=== PATIENT | male | born 1955 | race Caucasian/White ===

== ENCOUNTER 2017-03-09 09:43 | Day surgery (SDC) | payer OTHER ==
[~2017-03-09] VITALS: Ht 190.5 cm; Wt 90.8 kg
[2017-03-09] MEDS ORDERED: TENORMIN100 MG PO (10:02)
[2017-03-09] MEDS ORDERED: ASPIRIN 81M81 MG/TA2 PO (10:02)
[2017-03-09] MEDS ORDERED: LOTENSIN HCT 201 TAB PO (10:04)
[2017-03-09 10:05] VITALS: BP 110/80; PULSE 62; TEMP 97.7
[2017-03-09 11:10] VITALS: BP 101/70; PULSE 59; TEMP 97.7
[2017-03-09 11:30] VITALS: BP 96/67; PULSE 47
[2017-03-09 11:45] VITALS: BP 91/74; PULSE 49
[2017-03-09 12:00] VITALS: BP 101/59; PULSE 48
[2017-03-09 12:45] VITALS: BP 97/66; PULSE 53
== END 2017-03-09 12:45 | disposition home or self-care (01) ==
LOC: SDCO 09:43
DX: Z12.11 Encounter for screening for malignant neoplasm of colon (principal); K63.5 Polyp of colon; K57.30 Diverticulosis of large intestine without perforation or abscess without bleeding; Z86.010 Personal history of colon polyps; Z80.0 Family history of malignant neoplasm of digestive organs
CPT/HCPCS: J2250; J3010; J7030

== ENCOUNTER → 2021-01-10 | Outpatient (CLI) | payer MEDICARE, BC ==
[~2021-01-10] MED LIST: ASPIRIN 81M81 MG/TA2 PO; LOTENSIN HCT 201 TAB PO; TENORMIN100 MG PO
== END ==
LOC: COL.RAD 09:30
DX: Z13.6 Encounter for screening for cardiovascular disorders (principal)

== ENCOUNTER 2021-03-02 18:02 | Emergency (ER) | payer MEDICARE, BC ==
[~2021-03-02] VITALS: Ht 182.9 cm; Wt 93.2 kg
[2021-03-02 18:13] VITALS: TEMP 99
[2021-03-02 18:44] LABS: ALANINE AMINOTRANSFERASE 16 U/L (0-55); ALBUMIN 3.7 gm/dL (3.4-4.8); ALCOHOL(ethanol),MEDICAL 34 mg/dL (0-10); ALKALINE PHOSPHATASE 56 U/L (40-150); ANION GAP 16 mmol/L (7-16); AST,SGOT 32 U/L (5-34); BILIRUBIN,TOTAL 0.4 mg/dL (0.2-1.2); BLOOD UREA NITROGEN 16 mg/dL (8-26); CALCIUM 8.7 mg/dL (8.4-10.2); CARBON DIOXIDE 20 mmol/L (23-31); CHLORIDE 105 mmol/L (98-107); CREATININE, serum 0.84 mg/dL (0.72-1.25); GLUCOSE 112 mg/dL (70-99); POTASSIUM 3.7 mmol/L (3.5-4.5); SODIUM 141 mmol/L (136-145); TOTAL PROTEIN 6.9 gm/dL (6.2-8.1)
[2021-03-02 18:49] LABS: TROPONIN-I < 0.010 ng/mL (0.00-0.033)
[2021-03-02 18:55] LABS: BASO % 0.6 % (0.0-2.0); EOS # 0.1 K/mm3 (0.0-0.7); EOS % 0.9 % (0-4.0); GRAN # 4.3 K/mm3 (1.4-6.5); GRAN % 61.9 % (42.2-75.2); HEMATOCRIT 41.7 % (42.0-52.0); HEMOGLOBIN 14.5 g/dl (13.5-18.0); LYMPH # 1.6 K/mm3 (1.2-3.4); LYMPH % 23.6 % (20.0-51.0); MEAN CELL VOLUME 97 fl (80.0-100.0); MEAN CORPUSCULAR HEMOGLOBIN 34 pg (27.0-31.0); MEAN CORPUSCULAR HGB CONC 35 g/dl (33.0-37.0); MEAN PLATELET VOLUME 9.7 fl (7.4-10.4); MONO # 0.9 K/mm3 (0.1-0.6); MONO % 12.6 % (1.7-9.3); PLATELET COUNT 183 K/mm3 (130-400); RED BLOOD COUNT 4.32 M/mm3 (4.20-5.60); REDCELL DISTRIBUTION WIDTH-CV 13.5 % (11.5-14.5)
[2021-03-02 19:11] LABS: COLLECTION METHOD CATHETER
[2021-03-02 19:17] LABS: INR 0.9 (0.8-3.0); PARTIAL THROMBOPLASTIN TIME 18.2 SECONDS (26.0-37.0); PROTHROMBIN TIME 9.7 SECONDS (9.7-12.8)
[2021-03-02 19:34] LABS: MUCOUS Present (NOT PRESENT); PH 5 (5-8); SQUAMOUS EPITHELIAL None Seen /hpf (0-10); URINE APPEARANCE Clear (CLEAR/HAZY); URINE BACTERIA None Seen (NONE SEEN); URINE BILIRUBIN Negative (NEGATIVE); URINE BLOOD Negative (NEGATIVE); URINE COLOR Yellow (YELLOW); URINE GLUCOSE Negative (NEGATIVE); URINE KETONE Negative (NEGATIVE); URINE LEUKOCYTE ESTERASE Negative (NEGATIVE); URINE NITRATE Negative (NEGATIVE); URINE PROTEIN(semi-quant) Negative (NEGATIVE); URINE RBC 0-2 /hpf (0-2); URINE UROBILINOGEN Negative (NEGATIVE); URINE WBC 0-2 /hpf (0-2)
[2021-03-02 19:41] LABS: TRICYCLIC ANTIDEPRESS URINE NEGATIVE
[2021-03-02 20:18] VITALS: BP 158/99; PULSE 98
== END 2021-03-02 20:18 | disposition short-term general hospital (02) ==
LOC: COL.ER 18:02
PROVIDERS: Emergency Medicine
DX: I48.20 Chronic atrial fibrillation, unspecified (principal); I63.9 Cerebral infarction, unspecified; G83.9 Paralytic syndrome, unspecified; I10 Essential (primary) hypertension; Z20.822 Contact with and (suspected) exposure to COVID-19; Z79.899 Other long term (current) drug therapy
CPT/HCPCS: J3101; J7030; J7050; Q9967

== ENCOUNTER 2021-03-23 10:30 | Outpatient (RCR) | payer MEDICARE, BC | END 2021-03-25 | disposition home or self-care (01) | LOC: WSPT | DX: Z86.73 Personal history of transient ischemic attack (TIA), and cerebral infarction without residual deficits (principal) ==

== ENCOUNTER 2021-05-04 13:23 | Inpatient (IN) | payer MEDICARE, BC ==
[~2021-05-04] VITALS: Ht 190.5 cm; Wt 93.1 kg
[2021-05-18 09:04] LABS: BASO % 0.3 % (0.0-2.0); EOS # 0.1 K/mm3 (0.0-0.7); EOS % 1.3 % (0.0-4.0); GRAN # 4.6 K/mm3 (1.4-6.5); GRAN % 63.6 % (42.2-75.2); HEMATOCRIT 40.8 % (42.0-52.0); HEMOGLOBIN 13.9 g/dl (13.5-18.0); LYMPH # 1.6 K/mm3 (1.2-3.4); LYMPH % 22.3 % (20.0-51.0); MEAN CELL VOLUME 96 fl (80.0-100.0); MEAN CORPUSCULAR HEMOGLOBIN 33 pg (27-31); MEAN CORPUSCULAR HGB CONC 34 g/dl (33.0-37.0); MEAN PLATELET VOLUME 10.2 fl (7.4-10.4); MONO # 0.9 K/mm3 (0.1-0.6); MONO % 12.1 % (1.7-9.3); PLATELET COUNT 175 K/mm3 (130-400); RED BLOOD COUNT 4.27 M/mm3 (4.20-5.60); REDCELL DISTRIBUTION WIDTH-CV 12.6 % (11.5-14.5)
[2021-05-18 09:13] LABS: INR 1.3 (0.8-3.0); PROTHROMBIN TIME 14.4 SECONDS (9.7-12.8)
[2021-05-18] MEDS ORDERED: NICODERM C14 MG/PATC TD (09:24)
[2021-05-18] MEDS ORDERED: ELIQUIS 5MG PO (09:24)
[2021-05-18 09:29] LABS: ALBUMIN 3.7 gm/dL (3.4-4.8); BILIRUBIN,TOTAL 0.5 mg/dL (0.2-1.2); CALCIUM 8.9 mg/dL (8.4-10.2); CREATININE, serum 0.86 mg/dL (0.72-1.25); MAGNESIUM 1.7 mg/dL (1.6-2.6); POTASSIUM 4.2 mmol/L (3.5-4.5); TOTAL PROTEIN 6.8 gm/dL (6.2-8.1)
--- NOTE | 2021-05-18 10:00 | NUR ---
Admission assessment completed, alert/oriented, vital signs stable, EKG QTC WNL and Sotalol dose given, tele applied , SR on tele , IV startedto right forearm, present, home meds/allergies/pharmacy reviewed and updated, denies other needs, notified Cardiology of arrival
[2021-05-18] MEDS ORDERED: VITAMIN D31000 I1 PO (10:19)
[2021-05-18] MEDS ORDERED: KAPSPARGO SPRIN25 MG PO (10:20)
[2021-05-18] MEDS ORDERED: MULTI VITAMINS1 TAB PO (10:20)
[2021-05-18] MEDS ORDERED: LIPITOR 10MG10 MG PO (10:21)
[2021-05-18] MEDS ORDERED: ZESTRIL 5MG5 MG PO (10:21)
[2021-05-18 13:35] VITALS: BP 150/97; PULSE 75; TEMP 98.1
[2021-05-18 17:20] VITALS: BP 136/88; PULSE 81; TEMP 98.7
[2021-05-18 19:30] VITALS: BP 125/83; PULSE 67; TEMP 97.3
--- NOTE | 2021-05-18 21:31 | NUR ---
Patient assessed around 2034. Alert and oriented x 4, and able to make needs known. Denies pain and discomfort. Peripheral INT to right forearm. Denies SOB and dyspnea. LS CTA. HRR. Telemetry in place: normal sinus. BSAx4. Abdomen soft and non-tender. Voices no questions, needs, or concerns at this time. In bed with call light within reach.
[2021-05-18 23:42] VITALS: BP 121/79; PULSE 57; TEMP 97.9
[2021-05-19 04:18] VITALS: BP 115/76; PULSE 51; TEMP 98
--- NOTE | 2021-05-19 05:52 | NUR ---
Patient has been in bed with call light within reach. Has denied pain and discomfort this shift. Patient continues on tele, sinus calli, HR in the 50s. Voices no questions, needs, or concerns at this time. In bed with call light within reach.
[2021-05-19 07:18] LABS: BASO % 0.5 % (0.0-2.0); EOS # 0.1 K/mm3 (0.0-0.7); EOS % 2.3 % (0.0-4.0); GRAN # 3.7 K/mm3 (1.4-6.5); GRAN % 60.3 % (42.2-75.2); HEMATOCRIT 39.9 % (42.0-52.0); HEMOGLOBIN 13.8 g/dl (13.5-18.0); LYMPH # 1.5 K/mm3 (1.2-3.4); LYMPH % 23.7 % (20.0-51.0); MEAN CELL VOLUME 93 fl (80.0-100.0); MEAN CORPUSCULAR HEMOGLOBIN 32 pg (27-31); MEAN CORPUSCULAR HGB CONC 35 g/dl (33.0-37.0); MEAN PLATELET VOLUME 10.9 fl (7.4-10.4); MONO # 0.8 K/mm3 (0.1-0.6); MONO % 12.9 % (1.7-9.3); PLATELET COUNT 169 K/mm3 (130-400); RED BLOOD COUNT 4.27 M/mm3 (4.20-5.60); REDCELL DISTRIBUTION WIDTH-CV 12.5 % (11.5-14.5)
[2021-05-19 07:22] LABS: CALCIUM 8.8 mg/dL (8.4-10.2); CREATININE, serum 0.82 mg/dL (0.72-1.25); MAGNESIUM 1.7 mg/dL (1.6-2.6); POTASSIUM 4.1 mmol/L (3.5-4.5)
[2021-05-19 08:26] VITALS: BP 138/87; PULSE 65; TEMP 98.1
--- NOTE | 2021-05-19 08:39 | NUR ---
Assessment completed, alert/oriented, vital signs stable, denies any pain or discomfort, heart RRR/ SR-SB on tele, rate 60's this morning, QTC WNL and Sotalol dose given, lungs CTA/ no resp.difficulty noted, he is up in the room independently, he has had brekfast, denies other needs at this time, will continue to monitor
--- NOTE | 2021-05-19 09:13 | NUR ---
ALEJANDRO met with the patient to discuss discharge plan. The patient lives in [place] with his , Sarah ([phone]). He reports independence with ADLs and has a cane and walker. The patient states that he sees Dr. Zaidi and Dr. Stanley for primary care. [facility] The patient does not have a DPOA-HC in EMR, but he states that he may have one completed. He was interested in obtaining a new form. ALEJANDRO provided. The patient plans on returning home with his upon discharge. No additional needs at this time. *Discharge plan: home with *
[2021-05-19 11:16] VITALS: BP 114/71; PULSE 57; TEMP 97.9
[2021-05-19 17:43] VITALS: BP 149/97; PULSE 65; TEMP 98.1
[2021-05-19 19:35] VITALS: BP 135/83; PULSE 67; TEMP 97.7
--- NOTE | 2021-05-19 21:02 | NUR ---
Patient assessed around 2024. Alert and oriented x 4, and able to make needs known. Denies pain and discomfort. Continues on telemetry, normal sinus rhythm. Voices no questions, needs, or concerns at this time. In bed with call light within reach.
[2021-05-20 00:20] VITALS: BP 117/73; PULSE 53; TEMP 97.7
[2021-05-20 04:15] VITALS: BP 132/82; PULSE 51; TEMP 97.4
--- NOTE | 2021-05-20 05:59 | NUR ---
Patient has been in bed with call light within reach. Remains in sinus rhythm, bradycardia while sleeping. Voices no questions, needs, or concerns at this time. In bed with call light within reach.
[2021-05-20 07:03] LABS: BASO % 0.5 % (0.0-2.0); EOS # 0.2 K/mm3 (0.0-0.7); EOS % 3.6 % (0.0-4.0); GRAN # 3.1 K/mm3 (1.4-6.5); GRAN % 54.8 % (42.2-75.2); HEMATOCRIT 40.8 % (42.0-52.0); HEMOGLOBIN 13.7 g/dl (13.5-18.0); LYMPH # 1.5 K/mm3 (1.2-3.4); LYMPH % 27.4 % (20.0-51.0); MEAN CELL VOLUME 95 fl (80.0-100.0); MEAN CORPUSCULAR HEMOGLOBIN 32 pg (27-31); MEAN CORPUSCULAR HGB CONC 34 g/dl (33.0-37.0); MEAN PLATELET VOLUME 11.2 fl (7.4-10.4); MONO # 0.8 K/mm3 (0.1-0.6); MONO % 13.3 % (1.7-9.3); PLATELET COUNT 174 K/mm3 (130-400); REDCELL DISTRIBUTION WIDTH-CV 12.5 % (11.5-14.5)
[2021-05-20 07:20] LABS: CALCIUM 8.8 mg/dL (8.4-10.2); CREATININE, serum 0.83 mg/dL (0.72-1.25); MAGNESIUM 1.8 mg/dL (1.6-2.6)
[2021-05-20 08:36] VITALS: BP 136/88; PULSE 69; TEMP 98
--- NOTE | 2021-05-20 09:56 | NUR ---
Initial visit; Patient thanked Graduate Advisor for looking in on him and visiting, keeping him in her prayers and offering God's blessings.
[2021-05-20 11:35] VITALS: BP 129/80; PULSE 63; TEMP 97.8
[2021-05-20] MEDS ORDERED: BETAPACE 80MG80 MG PO (11:43)
--- NOTE | 2021-05-20 12:28 | NUR ---
THIS NURSE RECEIVED DISCHARGE ORDERS, PT DISCHARGE INSTRUTIONS PROVIDED TO PT AND , BOTH VERBALIZE UNDERSTANDING. THIS NURSE CHANGED PHARMACY TO [facility] AND CALLED PHARMACY TO ENSURE PICKUP READY. 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 PT IV DC'D, PT TELE MONITOR DC'D AND PLACED IN NURSES STATION. ALL BELONGINGS WITH PT. ALL ANSWERS ANSWERED. ROOM STRIPPED. PT ESCORTED OUT AT 1220.
== END 2021-05-20 12:20 | disposition home or self-care (01) | DRG 310 ==
LOC: MEDICAL 05-18 08:23
PROVIDERS: ADMIT Internal Medicine Cardiovascular Disease
DX: I48.0 Paroxysmal atrial fibrillation (principal); Z86.73 Personal history of transient ischemic attack (TIA), and cerebral infarction without residual deficits; Z23 Encounter for immunization
CPT/HCPCS: J3475

== ENCOUNTER → 2021-05-23 | Outpatient (RCR) | payer MEDICARE, BC ==
[~2021-05-23] MED LIST changes: +BETAPACE 80MG80 MG PO; +ELIQUIS 5MG PO; +KAPSPARGO SPRIN25 MG PO; +LIPITOR 10MG10 MG PO; +MULTI VITAMINS1 TAB PO; +NICODERM C14 MG/PATC TD; +VITAMIN D31000 I1 PO; +ZESTRIL 5MG5 MG PO
== END | disposition home or self-care (01) ==
LOC: WSPT
DX: I69.354 Hemiplegia and hemiparesis following cerebral infarction affecting left non-dominant side (principal)

== ENCOUNTER 2021-05-25 13:30 | Outpatient (RCR) | payer MEDICARE, BC | END 2021-06-13 10:26 | disposition home or self-care (01) | LOC: WSPT 13:30 | DX: I69.354 Hemiplegia and hemiparesis following cerebral infarction affecting left non-dominant side (principal) ==

== ENCOUNTER 2022-07-18 11:00 | Outpatient (RCR) | payer MEDICARE, BC ==
[~2022-07-18 11:00] MED LIST changes: +HCTZ12.5TAB PO; +PRINIVIL5 MG PO
== END 2022-07-18 13:10 | disposition home or self-care (01) ==
LOC: PT.GENESIS 11:00
DX: I63.511 Cerebral infarction due to unspecified occlusion or stenosis of right middle cerebral artery (principal); I69.354 Hemiplegia and hemiparesis following cerebral infarction affecting left non-dominant side

== ENCOUNTER 2023-07-30 18:33 | Emergency (ER) | payer MEDICARE, BC ==
[~2023-07-30] VITALS: Ht 190.5 cm; Wt 77.3 kg
[2023-07-30] MEDS ORDERED: Glucagon 1 MG VIAL IV ONE (19:00)
[2023-07-30] MEDS ORDERED: Ondansetron 4 MG/2 ML VIAL IV PRN ×2 (19:45→20:15)
[2023-07-30] MEDS ORDERED: HYDROmorphone 1 MG/1 ML SYRINGE [PACU/SDC ONLY] IV PRN (20:15)
[2023-07-30] MEDS ORDERED: fentaNYL 50 MCG/ML 1 ML SYRINGE/VIAL [PACU/SDC ONLY] IV PRN (20:15)
[2023-07-30] MEDS ORDERED: hydrALAZINE 20 MG/ML 1 ML VIAL IV PRN (20:15)
[2023-07-30] MEDS ORDERED: Morphine 2 MG/1 ML VIAL [PACU/SDC ONLY] IV PRN (20:15)
[2023-07-30] MEDS ORDERED: Rocuronium 50 MG/5 ML Multi-Dose VIAL ONE (20:19)
[2023-07-30] MEDS ORDERED: Lidocaine PF 2% (20 MG/ML) 5 ML VIAL ONE (20:19)
[2023-07-30] MEDS ORDERED: fentaNYL 50 MCG/ML 2 ML VIAL ONE (20:19)
[2023-07-30] MEDS ORDERED: Ondansetron 4 MG/2 ML VIAL ONE (20:19)
[2023-07-30] MEDS ORDERED: dexAMETHasone 10 MG/ML VIAL ONE (20:19)
[2023-07-30 21:06] VITALS: TEMP 97.7
[2023-07-30 23:03] VITALS: BP 144/70; PULSE 64
== END 2023-07-30 23:04 | disposition home or self-care (01) ==
LOC: COL.ER 18:33
DX: T18.128A Food in esophagus causing other injury, initial encounter (principal); Z79.82 Long term (current) use of aspirin; Z79.01 Long term (current) use of anticoagulants; W44.F3XA Food entering into or through a natural orifice, initial encounter
CPT/HCPCS: J1100; J1610; J2405; J2704; J3010

== ENCOUNTER → 2023-09-05 | Outpatient (CLI) | payer MEDICARE, BC ==
[~2023-09-05] MED LIST changes: +CYMBALTA 30MG30 MG PO; +IRON PO
== END ==
LOC: COL.LAB 11:01
DX: N17.9 Acute kidney failure, unspecified (principal)

== ENCOUNTER 2023-12-10 18:39 | Emergency (ER) | payer MEDICARE, BC ==
[~2023-12-10] VITALS: Ht 182.9 cm; Wt 68.2 kg
[2023-12-10 18:43] VITALS: TEMP 98.1
[2023-12-10] MEDS ORDERED: LR 1,000 ML IV ONE (19:00)
[2023-12-10] MEDS ORDERED: Prothrombin Complex Human 2,000 UNITS in Water For Injection,Sterile 80 ML IV ONE (19:15)
[2023-12-10 19:33] LABS: BASO % 0.4 % (0.0-2.0); EOS # 0.1 K/mm3 (0.0-0.7); EOS % 1.5 % (0.0-4.0); GRAN # 2.8 K/mm3 (1.4-6.5); GRAN % 53.2 % (42.2-75.2); HEMOGLOBIN 11.3 g/dl (13.5-18.0); LYMPH # 1.6 K/mm3 (1.2-3.4); LYMPH % 29.7 % (20.0-51.0); MEAN CELL VOLUME 97 fl (80.0-100.0); MEAN CORPUSCULAR HEMOGLOBIN 34 pg (27-31); MEAN CORPUSCULAR HGB CONC 35 g/dl (33.0-37.0); MEAN PLATELET VOLUME 9.9 fl (7.4-10.4); MONO # 0.8 K/mm3 (0.1-0.6); MONO % 14.6 % (1.7-9.3); PLATELET COUNT 191 K/mm3 (130-400); RED BLOOD COUNT 3.37 M/mm3 (4.20-5.60); REDCELL DISTRIBUTION WIDTH-CV 12.2 % (11.5-14.5)
[2023-12-10 19:38] LABS: HEMATOCRIT 32.7 % (42.0-52.0)
[2023-12-10 19:43] LABS: ALBUMIN 2.9 g/dL (3.4-4.8); BILIRUBIN,TOTAL 0.4 mg/dL (0.2-1.2); CALCIUM 8.6 mg/dL (8.4-10.2); CREATININE, serum 1.01 mg/dL (0.72-1.25); POTASSIUM 3.6 mEq/L (3.5-4.5); TOTAL PROTEIN 6.1 g/dl (6.2-8.1)
[2023-12-10] MEDS ORDERED: levETIRAcetam 1,000 MG in Syringe 1 EACH IV ONE (19:45)
[2023-12-10 20:45] VITALS: BP 131/90; PULSE 76
== END 2023-12-10 20:45 | disposition short-term general hospital (02) ==
LOC: COL.ER 18:39
PROVIDERS: Emergency Medicine
DX: S06.6XAA Traumatic subarachnoid hemorrhage with loss of consciousness status unknown, initial encounter (principal); F10.129 Alcohol abuse with intoxication, unspecified; Z79.82 Long term (current) use of aspirin; Z79.01 Long term (current) use of anticoagulants; W19.XXXA Unspecified fall, initial encounter
CPT/HCPCS: J1953; J7120; J7168